=== PATIENT | female | born 1980 | race Caucasian/White ===

== ENCOUNTER 2022-08-02 18:54 | Inpatient (IN) | payer BC, SELFPAY ==
[2022-08-02 18:59] VITALS: BMI 34.0
--- NOTE | 2022-08-02 19:02 | PC.NURSE ---
patient arrived by stretcher from [facility] to floor at 19:00
--- NOTE | 2022-08-02 19:12 | ECG_ITS ---
APPROVED REPORT Exam: Resting ECG HR:90 bpm ECG Measurements Heart Rate 90 AXES CA 160 P 73 QRSd 77 QRS 62 QT 331 T 61 QTc 379 Conclusion SINUS RHYTHM NORMAL ECG UNCONFIRMED REPORT Electronically signed by : Armando Phillips MD 08/03/2022 19:50:14
--- NOTE | 2022-08-02 19:28 | PC.NURSE ---
Report recieved from [facility] ED. Pt arrived to floor at approx 1900. Report given to Arsenio Boston RN
[2022-08-02 19:43] VITALS: PULSE 80
[2022-08-02 19:58] VITALS: PULSE 70
[2022-08-02 20:00] VITALS: BP 150/90; PULSE 70; PULSE 79; RESP 18; TEMP 36.7; O2SAT 99
[2022-08-02 21:09] LABS: Basophils # 0.2 K/mm3 (0-0.2); Basophils % 1.1 % (0.1-2.0); Eosinophils # 0.1 K/mm3 (0.0-0.4); Eosinophils % 0.7 % (0.1-12.0); Hematocrit 45.6 % (37.0-47.0); Hemoglobin 14.9 g/dL (12.2-16.2); Lymphocytes # 3.5 K/mm3 (0.7-4.5); Mean Corpuscular HGB Conc 32.7 g/dL (31.8-35.4); Mean Corpuscular Hemoglobin 29.4 pg (27.0-31.2); Mean Corpuscular Volume 89.7 fl (81-99); Monocytes # 0.6 K/mm3 (0.1-1.0); Monocytes % 3.9 % (1.7-9.3); Neutrophils # 10.7 K/mm3 (1.8-7.8); Neutrophils % 71.3 % (37.0-80.0); Platelet Count 332 K/mm3 (142-424); Red Blood Count 5.09 M/mm3 (4.20-5.40); Red Cell Distribution Width 13.2 % (11.5-17.5)
[2022-08-02 21:16] LABS: MANUAL DIFFERENTIAL MANUAL DIFFERENTIAL (MANUAL DIFF)
[2022-08-02 21:18] LABS: Chloride 101 mmol/L (98-107); Potassium 3.5 mmoL/L (3.5-5.1); Sodium 138 mmol/L (136-145)
[2022-08-02 21:21] LABS: Anion Gap 14.5 mEq/L (5-15); Blood Urea Nitrogen 12 mg/dl (7-17); Calcium 9.2 mg/dl (8.4-10.2); Carbon Dioxide 26 mmol/L (22.0-30.0); Creatinine Clearance Estimated 166 mL/min (50-200); Estimated Glomerular Filt Rate 109 ml/min (>60); GFR (African American) 132 ML/MIN (>60); Glucose 85 mg/dl (74-100)
[2022-08-02 21:40] LABS: Troponin I 0.22 ng/ml (0.00-0.034)
--- NOTE | 2022-08-02 21:40 | PC.NURSE ---
notified Kathleen colin NP hospitalist of critical troponin
[2022-08-02 22:06] LABS: Free T4 (Free Thyroxine) 0.91 ng/dl (0.78-2.19)
[2022-08-02 22:22] LABS: Lymphocytes % 12 % (10-50); Microcytosis 1+; Monocytes % 7 % (2-9); Neutrophils % 81 % (42-76); Platelet Estimate Normal; Total Cells Counted 100
--- NOTE | 2022-08-02 23:00 | EXP.HP ---
History of Present Illness *Admission Date: 08/02/22 *Reason for visit:: Elevated cardiac enzymes *History of present illness: With no significant past medical history presents as a transfer from an outside hospital for further evaluation of elevated cardiac enzymes. She reports being in her normal state of health this afternoon when she was bending over and developed sudden onset of extreme chest pressure and tightness that radiated to bilateral arms. She also endorses achiness of her elbows at the same time. She reports the pain was persistent until arriving to the outside hospital and then subsided. She denies any past medical history, is not a smoker, does not drink alcohol. She states that she is very holistic and feels like she is in decent health. She has been worked up recently for autoimmune disorders given persistent recent leukocytosis, body aches and flushing of skin. At the outside hospital her high-sensitivity troponin was 200. She was medicated with aspirin, Brilinta and IV bolus of heparin. Cardiology was consulted here prior to transfer. She is admitted to the hospital service for further evaluation management. [facility] Medical History (Updated 08/03/22 @ 08:47 by JAZMINE Babcock) Asthma Colonoscopy planned Ex-smoker for more than 1 year History of Gene thyroiditis Ovarian cyst Stomach ulcer Family History Other Hypertension Lung cancer Social History (Updated 08/02/22 @ 19:39 by Elva Pappas RN) Smoking Status: Former smoker alcohol intake: never substance use type: denies use current occupational status: employed Travel in the last 8 weeks: None adopted: No household members: spouse and children housing: house marital status: education level: high school service: No half-way: No pets and animals: Yes sexually active: Yes well-balanced diet: daily or most days caffeine: Yes physical activity: walking frequency: 3-4 times per week Review of Systems Constitutional Constitutional: Reports system reviewed and no additional complaints, except as documented Eyes Eyes: Reports system reviewed and no additional complaints, except as documented ENT Ears, Nose, Mouth, and Throat: Reports system reviewed and no additional complaints, except as documented *Cardiovascular Cardiovascular: Reports system reviewed and no additional complaints, except as documented and Reports palpitations *Respiratory Respiratory: Reports system reviewed and no additional complaints, except as documented *Gastrointestinal Gastrointestinal: Reports system reviewed and no additional complaints, except as documented *Genitourinary Genitourinary: Reports system reviewed and no additional complaints, except as documented *Musculoskeletal Musculoskeletal: Reports system reviewed and no additional complaints, except as documented Integumentary/Breasts Skin/Breast: Reports system reviewed and no additional complaints, except as documented *Neurologic Neurologic: Reports system reviewed and no additional complaints, except as documented Psychiatric Psychiatric: Reports system reviewed and no additional complaints, except as documented Endocrine Endocrine: Reports system reviewed and no additional complaints, except as documented and Reports palpitations Hematologic/Lymphatic Hematologic/Lymphatic: Reports system reviewed and no additional complaints, except as documented Meds Home Medications and Allergies Home Medications Medication Instructions Recorded Confirmed Type cetirizine 10 mg tablet (Zyrtec) 1 mg PO DAILY Allergy symptoms 08/02/22 08/02/22 History New Prescriptions to Start Prescriptions: Allergies Allergy/AdvReac Type Severity Reaction Status Date / Time Penicillins Allergy Mild Verified 08/02/22 19:53 Exam Data for Last 24 hours Vital signs and Labs for Last 24 Hours: Temp Pulse
--- NOTE | 2022-08-02 23:46 | PC.NURSE ---
NOTIFIED HOSPITALIST Kathleen AMADOR NP OF CRITICAL TROPONIN, NO NEW ORDERS AT THIS TIME.
[2022-08-03] VITALS (21 sets, daily range): BP systolic 122–173; BP diastolic 73–113; PULSE 73–101; RESP 16–20; TEMP 36.6–37.1; O2SAT 97–100; BMI 31.2
--- NOTE | 2022-08-03 04:57 | PC.NURSE ---
pt has had no complaints this shift. pt denies chest pain and shortness of air. denies tingling in arm. she is NSR on telemetry. HR 75-91. SBP 136-150.
[2022-08-03 06:51] LABS: Basophils # 0.1 K/mm3 (0-0.2); Basophils % 0.7 % (0.1-2.0); Eosinophils # 0.1 K/mm3 (0.0-0.4); Eosinophils % 0.9 % (0.1-12.0); Hematocrit 44.3 % (37.0-47.0); Hemoglobin 14.5 g/dL (12.2-16.2); Lymphocytes # 2.1 K/mm3 (0.7-4.5); Lymphocytes % 19.2 % (10-50); Mean Corpuscular HGB Conc 32.8 g/dL (31.8-35.4); Mean Corpuscular Hemoglobin 29.5 pg (27.0-31.2); Mean Platelet Volume 7.8 fl (7.4-10.4); Monocytes # 0.5 K/mm3 (0.1-1.0); Monocytes % 4.5 % (1.7-9.3); Neutrophils % 74.7 % (37.0-80.0); Platelet Count 294 K/mm3 (142-424); Red Blood Count 4.93 M/mm3 (4.20-5.40); Red Cell Distribution Width 13.1 % (11.5-17.5); White Blood Count 10.7 K/mm3 (4.8-10.8)
[2022-08-03 07:02] LABS: Anion Gap 15.8 mEq/L (5-15); Blood Urea Nitrogen 11 mg/dl (7-17); Calcium 8.8 mg/dl (8.4-10.2); Carbon Dioxide 23 mmol/L (22.0-30.0); Chloride 103 mmol/L (98-107); Chol/HDL Ratio 3.5 (1-3.5); Cholesterol 153 mg/dl (140-200); Creatinine Clearance Estimated 153 mL/min (50-200); Estimated Glomerular Filt Rate 109 ml/min (>60); GFR (African American) 132 ML/MIN (>60); Glucose 90 mg/dl (74-100); HDL Cholesterol 44 mg/dl (40-60); Magnesium 1.7 mg/dl (1.6-2.3); Potassium 3.8 mmoL/L (3.5-5.1); Sodium 138 mmol/L (136-145); Triglycerides 57 mg/dl (30-150); VLDL Cholesterol 11 mg/dL (0-40)
[2022-08-03 07:13] LABS: Direct LDL Cholesterol 72.85 mg/dL (100-129)
[2022-08-03 07:14] LABS: Troponin I 0.11 ng/ml (0.00-0.034)
--- NOTE | 2022-08-03 07:48 | ECG_ITS ---
APPROVED REPORT Exam: Resting ECG HR:72 bpm ECG Measurements Heart Rate 72 AXES WA 164 P 73 QRSd 80 QRS 38 QT 394 T 39 QTc 419 Conclusion SINUS RHYTHM NORMAL ECG UNCONFIRMED REPORT Electronically signed by : Armando Phillips MD 08/03/2022 19:48:05
--- NOTE | 2022-08-03 08:36 | EXP.CARD.CON ---
History of Present Illness History of Present Illness Consult date: 08/03/22 Requesting physician: Frandy Branch Consult reason: chest pain Chief complaint: CP, SOA, Palpitations Additional Medical History:: 1. Ex-smoker, discontinued in her mid to late 20s, smoked up to 1.5 packs/day 2. Gene's thyroiditis, per patient, treated conservatively at this time on no medications. History of elevated TPO per patient A. Normal TSH and free T4, 08/03/2022 3. History of rosacea 4. Palpitations, chest pain, shortness of breath with elevated troponin, 08/02/2022 5. 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 She denies any syncope or near syncopal symptoms. No vomiting or diarrhea. Symptoms became concerning enough that she contacted EMS and was transported to an outlying hospital. Work-up at that time included troponins which were noted to be elevated and subsequently patient was transferred here for further evaluation and treatment. EKG yesterday and this a.m. shows sinus rhythm with no acute ST segment elevation. Patient was given aspirin, Brilinta and IV bolus of heparin prior to transfer here. She has had no further discomfort. Peak troponin at this facility is 0.22 and declining. Patient denies any prior history of coronary artery disease, no treatment for hypertension or hyperlipidemia or history of diabetes. No family history of coronary artery disease. Patient does not drink coffee but does take a single 5-hour energy drink every day. She also uses a daily hemp oil extract and Sativa to help control rheumatologic symptoms. [facility] Medical History (Updated 08/03/22 @ 08:47 by JAZMINE Babcock) Asthma Colonoscopy planned Ex-smoker for more than 1 year History of Gene thyroiditis Ovarian cyst Stomach ulcer Family History Lung cancer Hypertension Social History (Updated 08/02/22 @ 19:39 by Elva Pappas RN) Smoking Status: Former smoker alcohol intake: never substance use type: denies use current occupational status: employed Travel in the last 8 weeks: None adopted: No household members: spouse and children housing: house marital status: education level: high school service: No usp: No pets and animals: Yes sexually active: Yes well-balanced diet: daily or most days caffeine: Yes physical activity: walking frequency: 3-4 times per week Review of Systems Review of Systems Review of systems:: pertinent systems reviewed and negative unless documented below *Cardiovascular Cardiovascular: Reports dyspnea, Reports palpitations and Reports radiating jaw, neck or arm pain *Respiratory Respiratory: Reports dyspnea *Gastrointestinal Gastrointestinal: Denies abdominal pain, Denies heartburn and Denies loose stools *Neurologic Neurologic: Reports system reviewed and no additional complaints, except as documented Endocrine Endocrine: Reports palpitations Exam Data for Last 24 hours Vital signs and Labs for Last 24 Hours: Temp Pulse Resp BP Pulse Ox 98.0 F 77 17 122/85 97 08/03/22 07:31 08/03/22 07:31 08/03/22 07:31 08/03/22 07:31 08/03/22 07:31 Laboratory Results - last 24 hr 08/02/22 20:45: WBC 15.0 H, RBC 5.09, Hgb 14.9, Hct 45.6, MCV 89.7, MCH 29.4, MCHC 32.7, RDW 13.2, Plt Count 332, MPV 8.0, Neut % (Auto) 71.3, Lymph % (Auto) 23.0, Door % (Auto) 3.9, Eo
--- NOTE | 2022-08-03 08:40 | CA_ITS ---
APPROVED REPORT EXAM: Comprehensive 2D, Doppler, and color-flow Echocardiogram Ager Tender: Candida Snell RT(R) Ht: 5 ft 3 in Wt: 176lbs BSA: 1.83 BP: 150/90 mmHg Indications: CP, ex smoker, palpitations, NSTEMI 2D Dimensions LVOT 1.79 cm (M/F) 1.5-2.5 LVEF (Hodge's) 49.20 % F: 54 - 74 LV Volume 78.30 mL F: 46 - 106 LV Volume Index 42.78 mL/m2 F: 29 - 61 LA Volume 18.50 mL LA Volume Index 10.10 mL/m2 (M/F) 16-34 M-Mode Dimensions RVDd 1.74 cm (0.9-2.6) LA Diam 2.89 cm (1.9-4.0) LVDd 4.53 cm (3.5-5.7) Ao Diam 2.65 cm (2.0-3.7) LVDs 3.40 cm (3.5-5.7) IVSd 0.84 cm (0.6-1.1) PWd 0.78 cm (0.6-1.1) EF (Teich) 49.50% FS 24.90% EDV (Teich) 93.90 mL ESV (Teich) 47.40 mL LV Diastology E Decel Time 150.00 (160-240 msec) E/A Ratio 1.7 MED E' 10.00 (< 7 cm/sec) E'/MED E' Ratio 7.60 (>14) LAT E' 15.80 (<10 cm/sec) E/LAT E' Ratio 4.81 (>14) Mitral Valve MV E Max Jose Carlos. 76.00 (40-130 cm/s) MV A Velocity 44.00 (40-130 cm/s) E/A Ratio 1.73 MV Decel. Time 150.00 (160-240 ms) MV PHT 44.00 ms Left Ventricle Atrium is normal size, left ventricle is normal size, estimated ejection fraction 55% with no regional wall motion abnormality. Diastolic parameters are within normal range. Right Ventricle Atrium and right ventricle are normal size and contractility. Aortic Valve Aortic valve is minimally thickened and fibrosed there is no aortic stenosis or aortic insufficiency. Mitral Valve Mitral valve grossly normal, there is trace mitral regurgitation. Tricuspid Valve Tricuspid valve grossly normal, there is trace tricuspid regurgitation, tricuspid regurgitation request is inadequate for calculation of the right ventricular systolic pressure. Pulmonic Valve Pulmonic valve is poorly visualized. Great Vessels Aortic root is normal size. Inferior vena cava is normal size with normal inspiratory collapse. Pericardium No significant pericardial effusion noted. Conclusion 1. Normal left ventricular size preserved left ventricular systolic function, estimated ejection fraction 55% with no regional wall motion abnormality, diastolic parameters are within normal range. 2. Trace mitral and tricuspid regurgitation. 3. No significant pericardial effusion noted. 4. Inferior vena cava is normal size with normal inspiratory collapse. Electronically signed by : Paulie Duenas MD 08/04/2022 10:04:07
--- NOTE | 2022-08-03 09:44 | IR_ITS ---
APPROVED REPORT Patient Location: Inpatient PROCEDURES Selective coronary angiogram Drug-eluting stent deployment to the proximal circumflex artery INDICATION Acute non-ST elevation myocardial infarction, Coronary artery disease Informed consent was obtained prior to the procedure. COMPLICATIONS NONE Estimated Blood Loss: LESS THAN 10 ML TECHNIQUE One percent lidocaine used to anesthetize the right anterior aspect of the wrist. The right radial artery was accessed via the Seldinger technique. A 6 Cymro sheath was placed in the right radial artery. 2.5 mg of verapamil, 800 mcg of nitroglycerin, 1mg Lidocaine and 5000 U Heparin were given through the arterial sheath. The papa catheter was also used to perform left heart catheterization, left ventriculogram and selective coronary angiogram. At the end the diagnostic angiogram therapeutic heparin was administered giving a therapeutic ACT and the guide catheter was placed in left main artery followed by a Choice PT extra-support wire being placed in the circumflex artery. A 2.75 x 15 mm resolute [place]ham stent was deployed at 15 margi reducing the stenosis. A 2.75 x 8 mm noncompliant balloon was then deployed in the proximal portion of the stent at 22 margi to further post dilate. Excellent angiographic results were obtained with ARLEY-3 flow being present before and after the procedure. At the end the procedure the apparatus was removed the sheath was removed and hemostasis was achieved using TR banding patient was transferred to the postop putting in stable condition ANGIOGRAPHIC RESULTS The left main artery Normal The left anterior descending artery Proximally normal with remaining vessel normal The circumflex artery Nondominant yet still large with a proximal concentric 70 to 80% stenosis The right coronary artery Dominant normal The GONZALEZ ventriculogram reveals Not performed The left ventricular end-diastolic pressure Not measured IMPRESSION Severe single-vessel coronary disease as described above successful stenting to the circumflex artery reducing the culprit stenosis to 0% with 1 drug-eluting stent PLAN 1. Brilinta 90 twice daily plus aspirin 81 mg daily 2. LDL less than 55 to be achieved with high intensity statin 3. Standard therapy for ischemic heart disease 4. Aggressive risk factor modification 5. Cardiac rehabilitation 6. Avoidance of tobacco products Electronically signed by : Veto Tinoco MD 08/03/2022 12:51:09
--- NOTE | 2022-08-03 12:02 | PC.NURSE ---
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
--- NOTE | 2022-08-03 12:10 | EXP.PN ---
Subjective *Date: 08/03/22 *Time: 12:10 Interval history: Chest pain resolved prior to patient arriving at this facility last night. She is agreeable to left heart cath today with cardiology. Exam Data for Last 24 hours Vital signs and Labs for Last 24 Hours: Temp Pulse Resp BP Pulse Ox 98.3 F 78 16 143/96 H 98 08/03/22 11:35 08/03/22 11:35 08/03/22 11:35 08/03/22 11:35 08/03/22 11:35 Laboratory Results - last 24 hr 08/02/22 20:45: WBC 15.0 H, RBC 5.09, Hgb 14.9, Hct 45.6, MCV 89.7, MCH 29.4, MCHC 32.7, RDW 13.2, Plt Count 332, MPV 8.0, Neut % (Auto) 71.3, Lymph % (Auto) 23.0, [place] % (Auto) 3.9, Eos % (Auto) 0.7, Baso % (Auto) 1.1, Neut # (Auto) 10.7 H, Lymph # (Auto) 3.5, [place] # (Auto) 0.6, Eos # (Auto) 0.1, Baso # (Auto) 0.2, Total Counted 100, Neutrophils % (Manual) 81 H, Lymphocytes % (Manual) 12, Monocytes % (Manual) 7, Platelet Estimate Normal, Microcytosis 1+ 08/02/22 20:45: Sodium 138, Potassium 3.5, Chloride 101, Carbon Dioxide 26, Anion Gap 14.5, BUN 12, Creatinine 0.60, Estimated Creat Clear 166, Estimated GFR 109, Est GFR ( Amer) 132, Glucose 85, Calcium 9.2, Troponin I 0.22 H, TSH 1.70 08/02/22 20:45: Free T4 0.91 08/02/22 23:00: Troponin I 0.20 H 08/03/22 06:21: WBC 10.7 D, RBC 4.93, Hgb 14.5, Hct 44.3, MCV 90.0, MCH 29.5, MCHC 32.8, RDW 13.1, Plt Count 294, MPV 7.8, Neut % (Auto) 74.7, Lymph % (Auto) 19.2, [place] % (Auto) 4.5, Eos % (Auto) 0.9, Baso % (Auto) 0.7, Neut # (Auto) 8.0 H, Lymph # (Auto) 2.1, [place] # (Auto) 0.5, Eos # (Auto) 0.1, Baso # (Auto) 0.1 08/03/22 06:21: Sodium 138, Potassium 3.8, Chloride 103, Carbon Dioxide 23, Anion Gap 15.8 H, BUN 11, Creatinine 0.60, Estimated Creat Clear 153, Estimated GFR 109, Est GFR ( Amer) 132, Glucose 90, Calcium 8.8, Magnesium 1.7, Triglycerides 57, Cholesterol 153, LDL Cholesterol Direct 72.85 L, VLDL Cholesterol 11, HDL Cholesterol 44, Cholesterol/HDL Ratio 3.5 08/03/22 06:21: Troponin I 0.11 H Temp Pulse Resp BP Pulse Ox 98.0 F 77 17 122/85 97 08/03/22 07:31 08/03/22 07:31 08/03/22 07:31 08/03/22 07:31 08/03/22 07:31 Laboratory Results - last 24 hr 08/02/22 20:45: WBC 15.0 H, RBC 5.09, Hgb 14.9, Hct 45.6, MCV 89.7, MCH 29.4, MCHC 32.7, RDW 13.2, Plt Count 332, MPV 8.0, Neut % (Auto) 71.3, Lymph % (Auto) 23.0, [place] % (Auto) 3.9, Eos % (Auto) 0.7, Baso % (Auto) 1.1, Neut # (Auto) 10.7 H, Lymph # (Auto) 3.5, [place] # (Auto) 0.6, Eos # (Auto) 0.1, Baso # (Auto) 0.2, Total Counted 100, Neutrophils % (Manual) 81 H, Lymphocytes % (Manual) 12, Monocytes % (Manual) 7, Platelet Estimate Normal, Microcytosis 1+ 08/02/22 20:45: Sodium 138, Potassium 3.5, Chloride 101, Carbon Dioxide 26, Anion Gap 14.5, BUN 12, Creatinine 0.60, Estimated Creat Clear 166, Estimated GFR 109, Est GFR ( Amer) 132, Glucose 85, Calcium 9.2, Troponin I 0.22 H, TSH 1.70 08/02/22 20:45: Free T4 0.91 08/02/22 23:00: Troponin I 0.20 H 08/03/22 06:21: WBC 10.7 D, RBC 4.93, Hgb 14.5, Hct 44.3, MCV 90.0, MCH 29.5, MCHC 32.8, RDW 13.1, Plt Count 294, MPV 7.8, Neut % (Auto) 74.7, Lymph % (Auto) 19.2, [place] % (Auto) 4.5, Eos % (Auto) 0.9, Baso % (Auto) 0.7, Neut # (Auto) 8.0 H, Lymph # (Auto) 2.1, [place] # (Auto) 0.5, Eos # (Auto) 0.1, Baso # (Auto) 0.1 08/03/22 06:21: Sodium 138, Potassium 3.8, Chloride 103, Carbon Dioxide 23, Anion Gap 15.8 H, BUN 11, Creatinine 0.60, Estimated Creat Clear 153, Estimated GFR 109, Est GFR ( Amer) 132, Glucose 90, Calcium 8.8, Magnesium 1.7, Triglycerides 57, Cholesterol 153, LDL Cholesterol Direct 72.85 L, VLDL Cholesterol 11, HDL Cholesterol 44, Cholesterol/HDL Ratio 3.5 08/03/22 06:21: Troponin I 0.11 H I & O for Last 24 hours: Intake & Output 07/31/22 08/01/22 08/02/22 08/03/22 23:59 23:59 23:59 23:59 Intake Total 0 / 0 Output Total 750 / 750 Balance -750 / -750 Weight 87.118 kg 80.059 kg Intake & Output 07/31/22 08/01/22 08/02/22 08/03/22 11:59 11:59 11:59 11:59 Intake Total 0 / 0 Output Total 750 / 750 Ba
[2022-08-03 13:03] LABS: CATHL Activated Clotting Time 307 SEC (74-125)
--- NOTE | 2022-08-03 17:14 | EXP.DC.SUM ---
General Admission date:: 08/02/22 Discharge date: 08/03/22 HPI HPI HPI: With no significant past medical history presents as a transfer from an outside hospital for further evaluation of elevated cardiac enzymes. She reports being in her normal state of health this afternoon when she was bending over and developed sudden onset of extreme chest pressure and tightness that radiated to bilateral arms. She also endorses achiness of her elbows at the same time. She reports the pain was persistent until arriving to the outside hospital and then subsided. She denies any past medical history, is not a smoker, does not drink alcohol. She states that she is very holistic and feels like she is in decent health. She has been worked up recently for autoimmune disorders given persistent recent leukocytosis, body aches and flushing of skin. At the outside hospital her high-sensitivity troponin was 200. She was medicated with aspirin, Brilinta and IV bolus of heparin. Cardiology was consulted here prior to transfer. She is admitted to the hospital service for further evaluation management. Hospital Course Hospital Course Hospital Course: Patient was transferred from [facility] to this facility yesterday, 08/02/2022 for NSTEMI with elevated troponins. Patient remained stable overnight, with troponins trending down, chest pain resolved, and EKG overall reassuring. Patient underwent a left heart cath today with Dr. Tinoco and this showed 70 to 80% stenosis of the circumflex artery requiring placement of 1 drug-eluting stent. Patient has done well postop, pressure band was released from her right wrist without any evidence of tenderness or hematoma or bleeding. She will be discharged on Brilinta 90 mg twice daily and aspirin 81 mg daily. Patient will follow-up with Dr. Tinoco on August 14 and she is advised to follow-up with her PCP within the next 5 days. Exam Data for Last 24 hours Vital signs and Labs for Last 24 Hours: Temp Pulse Resp BP Pulse Ox 98.3 F 101 H 20 135/97 H 97 08/03/22 11:35 08/03/22 16:05 08/03/22 16:05 08/03/22 16:05 08/03/22 16:05 Laboratory Results - last 24 hr 08/02/22 20:45: WBC 15.0 H, RBC 5.09, Hgb 14.9, Hct 45.6, MCV 89.7, MCH 29.4, MCHC 32.7, RDW 13.2, Plt Count 332, MPV 8.0, Neut % (Auto) 71.3, Lymph % (Auto) 23.0, [place] % (Auto) 3.9, Eos % (Auto) 0.7, Baso % (Auto) 1.1, Neut # (Auto) 10.7 H, Lymph # (Auto) 3.5, [place] # (Auto) 0.6, Eos # (Auto) 0.1, Baso # (Auto) 0.2, Total Counted 100, Neutrophils % (Manual) 81 H, Lymphocytes % (Manual) 12, Monocytes % (Manual) 7, Platelet Estimate Normal, Microcytosis 1+ 08/02/22 20:45: Sodium 138, Potassium 3.5, Chloride 101, Carbon Dioxide 26, Anion Gap 14.5, BUN 12, Creatinine 0.60, Estimated Creat Clear 166, Estimated GFR 109, Est GFR ( Amer) 132, Glucose 85, Calcium 9.2, Troponin I 0.22 H, TSH 1.70 08/02/22 20:45: Free T4 0.91 08/02/22 23:00: Troponin I 0.20 H 08/03/22 06:21: WBC 10.7 D, RBC 4.93, Hgb 14.5, Hct 44.3, MCV 90.0, MCH 29.5, MCHC 32.8, RDW 13.1, Plt Count 294, MPV 7.8, Neut % (Auto) 74.7, Lymph % (Auto) 19.2, [place] % (Auto) 4.5, Eos % (Auto) 0.9, Baso % (Auto) 0.7, Neut # (Auto) 8.0 H, Lymph # (Auto) 2.1, [place] # (Auto) 0.5, Eos # (Auto) 0.1, Baso # (Auto) 0.1 08/03/22 06:21: Sodium 138, Potassium 3.8, Chloride 103, Carbon Dioxide 23, Anion Gap 15.8 H, BUN 11, Creatinine 0.60, Estimated Creat Clear 153, Estimated GFR 109, Est GFR ( Amer) 132, Glucose 90, Calcium 8.8, Magnesium 1.7, Triglycerides 57, Cholesterol 153, LDL Cholesterol Direct 72.85 L, VLDL Cholesterol 11, HDL Cholesterol 44, Cholesterol/HDL Ratio 3.5 08/03/22 06:21: Troponin I 0.11 H 08/03/22 13:29: Activated Clotting Time 307 H* I & O for Last 24 hours: Intake & Output 07/31/22 08/01/22 08/02/22 08/03/22 23:59 23:59 23:59 23:59 Intake Total 120 / 120 Output Total 750 / 750 Balance -630 / -630 Weight 87.118 kg 80.059 kg Microbiology Reports for th
--- NOTE | 2022-08-04 14:00 | CARE MANAGER ---
Spoke with patient who states she is doing very well. She denies questions or concerns. She is aware of her follow up appointments and was able to picker her medications. MALDONADO Gallardo
--- NOTE | 2022-08-05 08:40 | HMH.PHACL ---
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 PATIENT TO FOLLOW UP WITH THEM. -MARTITA COSTELLO, MARQUISED
[2022-08-26 23:18] LABS: Antinuclear Antibodies (ANA) Negative; Rheumatoid Factor IGA < 7
== END 2022-08-03 18:40 | disposition home or self-care (01) | DRG 247 ==
PROVIDERS: Internal Medicine; Nurse Practitioner Acute Care; Admitting Provider Emergency Medicine; PCP General Practice; Visit Provider Emergency Medicine
PROC: 027034Z Dilation of Coronary Artery, One Artery with Drug-eluting Intraluminal Device, Percutaneous Approach (ICD-10-PCS; principal; 2022-08-03 11:45)
DX: I21.4 Non-ST elevation (NSTEMI) myocardial infarction (principal); Z87.891 Personal history of nicotine dependence; I25.10 Atherosclerotic heart disease of native coronary artery without angina pectoris
CPT/HCPCS: 36415; 80048; 80061; 83735; 84439; 84443; 84484; 85007; 85025; 85347; 86038; 86431; 92928; 93005; 93306; 93458; 99152; C1725; C1769; C1876; C9600; C9803; J1644; Q9967; U0003; U0005

== ENCOUNTER → 2022-08-14 09:56 | Outpatient (CLI) | payer BC, SELFPAY ==
[2022-08-14 10:18] LABS: Hematocrit 43.7 % (37.0-47.0); Hemoglobin 14.9 g/dL (12.2-16.2)
[2022-08-14 10:26] LABS: Blood Urea Nitrogen 16 mg/dl (7-17); Estimated Glomerular Filt Rate 78 ml/min (>60); GFR (African American) 95 ML/MIN (>60)
== END ==
PROVIDERS: Internal Medicine; PCP General Practice; Visit Provider Emergency Medicine
DX: I25.10 Atherosclerotic heart disease of native coronary artery without angina pectoris (principal)
CPT/HCPCS: 36415; 82565; 84520; 85014; 85018